=== PATIENT | female | born 1960 | race Caucasian/White ===

== ENCOUNTER → 2017-03-26 14:24 | Outpatient (CLI) | payer BC | END | disposition home or self-care (01) | LOC: D.MAMMO 08:30 | DX: Z12.31 Encounter for screening mammogram for malignant neoplasm of breast (principal) ==

== ENCOUNTER → 2017-04-29 13:40 | Outpatient (CLI) | payer BC | END | disposition home or self-care (01) | LOC: D.MAMMO 09:30 | DX: R92.8 Other abnormal and inconclusive findings on diagnostic imaging of breast (principal) ==

== ENCOUNTER 2019-10-30 19:00 | Outpatient (CLI) | payer BC | END 2019-10-30 23:59 | disposition home or self-care (01) | LOC: D.MAMMO 19:00 | PROVIDERS: ATTEND Clinical Nurse Specialist Family Health | DX: Z12.31 Encounter for screening mammogram for malignant neoplasm of breast (principal) ==

== ENCOUNTER 2019-11-05 09:00 | Outpatient (CLI) | payer BC | END 2019-11-05 10:00 | disposition home or self-care (01) | LOC: D.MAMMO 09:00 | PROVIDERS: ATTEND Clinical Nurse Specialist Family Health | DX: R92.8 Other abnormal and inconclusive findings on diagnostic imaging of breast (principal) ==